=== PATIENT | female | born 1925 | race Caucasian/White ===

== ENCOUNTER 2016-04-04 10:32 | Inpatient (IN) | payer MEDICARE, OTHER ==
[2016-04-04] MEDS ORDERED: SODIUM CHLORIDE 0.9% 1,000 ML IV STA (10:59)
[2016-04-04] MEDS ORDERED: ACETAMINOPHEN SUPPOSITORY 650 MG SUPP RECTAL STA (11:08)
--- NOTE | 2016-04-04 11:08 | ED ---
Seizure HPI - General Chief Complaint: Seizure Stated Complaint: Seizure Time Seen by Provider: 04/04/16 10:47 Source: patient, family, EMS Mode of arrival: EMS Limitations: altered mental status - History of Present Illness Initial Comments: Patient presents to the [facility] with possible altered mental status versus seizure disorder. She does not answer questions. She has dementia. Information is provided by the daughters. They do not report anything else from the [facility]. - Related Data Home Medications Medication Instructions Recorded Confirmed Pravastatin Sodium [Pravachol] 20 mg PO DAILY@0800 04/11/14 04/04/16 Cholecalciferol [Vitamin D3] 1,000 unit PO DAILY@0800 08/29/15 04/04/16 Docusate [Colace] 100 mg PO DAILY 08/29/15 04/04/16 Acetaminophen Tab [Tylenol] 325 mg PO Q6H PRN 01/22/16 04/04/16 Atenolol [Atenolol] 50 mg PO BID@0800,2000 01/22/16 04/04/16 Escitalopram [Lexapro] 10 mg PO DAILY@0800 01/22/16 04/04/16 Polyethylene Glycol 3350 [Miralax] 17 gm PO DAILY PRN 01/22/16 04/04/16 Acetaminophen-Codeine 300-30mg 1 tab PO Q4H PRN 04/04/16 04/04/16 [Tylenol #3] Docusate [Colace] 100 mg PO DAILY PRN 04/04/16 04/04/16 Allergies Allergy/AdvReac Type Severity Reaction Status Date / Time enalapril Allergy Unknown Verified 04/04/16 11:02 Review of Systems ROS Statement: Those systems with pertinent positive or pertinent negative responses have been documented in the HPI. ROS Other: All systems not noted in ROS Statement are negative. Past Medical History Past Medical History: Atrial Fibrillation, Dementia, GERD/Reflux, GI Bleed, Hyperlipidemia, Hypertension, Memory Impairment, Skin Disorder Additional Past Medical History / Comment(s): wound right ankle-since healed( went to [facility] home), bunions kolby feet, clear colonoscopies ( daughter states 2 areas of bleed in colon). History of Any Multi-Drug Resistant Organisms: None Reported Past Surgical History: Appendectomy, Cholecystectomy Additional Past Surgical History / Comment(s): cataracts, vein stripping Past Anesthesia/Blood Transfusion Reactions: No Reported Reaction Past Psychological History: No Psychological Hx Reported Smoking Status: Never smoker Past Alcohol Use History: None Reported Past Drug Use History: None Reported - Past Family History Father Family Medical History: Liver Disease Brother(s) Family Medical History: Myocardial Infarction ([place]) Mother Family Medical History: No Reported History Additional Family Medical History / Comment(s): from old age at age of 92 General Exam Limitations: altered mental status General appearance: obtunded Head exam: Present: atraumatic Eye exam: Present: normal appearance Respiratory exam: Present: normal lung sounds bilaterally Cardiovascular Exam: Present: irregular rhythm GI/Abdominal exam: Present: soft. Absent: tenderness Extremities exam: Present: normal inspection. Absent: tenderness Back exam: Present: normal inspection Neurological exam: Present: other (Disoriented, not alert) Skin exam: Present: warm, dry Course Vital Signs 04/04/16 04/04/16 10:35 10:50 Temperature 97.5 F L Pulse Rate 106 H 95 Pulse Rate [ 102 H Apical] Respiratory 18 15 Rate Blood Pressure 145/85 128/89 O2 Sat by Pulse 93 L 93 L Oximetry Medical Decision Making - Medical Decision Making Laboratory workup reveals hypokalemia. Therefore I ordered the patient 20 mEq IV potassium chloride. Urinalysis is significant only positive for infection. Blood cultures have been sent. I ordered the patient IV ceftriaxone. Sodium is elevated, however chest x-ray shows pulmonary vascular congestion. Patient will be admitted to the hospital in serious condition. - Lab Data Result diagrams: 04/04/16 10:44 04/04/16 10:44 Lab Results 04/04/16 04/04/16 04/04/16 Range/Units 10:44 10:44 10:44 WBC 6.6 (3.8-10.6) k/uL RBC 3.37 L (3.80-5.40) m/uL Hgb 10.5 L (11.4-16.0) gm/dL Hct 33.9 L (34.0-46.0) % MCV 100.5 H (80.0-100.0) fL MCH 31.2 (25.0-35.0) pg MCHC 31.0 (31.0-37.0) g/dL RDW 15.0 (11.5-15.5) % Plt Count 326 (150-450) k/uL Neutrophils % 84 % Lymphocytes % 8 % Monocytes % 6 % Eosinophils % 0 % Basophils % 0 % Neutrophils # 5.6 (1.3-7.7) k/uL Lymphocytes # 0.5 L (1.0-4.8) k/uL Monocytes # 0.4 (0-1.0) k/uL Eosinophils # 0.0 (0-0.7) k/uL Basophils # 0.0 (0-0.2) k/uL Hypochromasia Moderate Macrocytosis Slight Sodium 153 H (137-145) mmol/L Potassium 2.9 L* (3.5-5.1) mmol/L Chloride 109 H (98-107) mmol/L Carbon Dioxide 34 H (22-30) mmol/L Anion Gap 10 mmol/L BUN 27 H (7-17) mg/dL Creatinine 0.86 (0.52-1.04) mg/dL Est GFR (MDRD) Af Amer >60 (>60 ml/min/1.73 sqM) Est GFR (MDRD) Non-Af >60 (>60 ml/min/1.73 sqM) Glucose 94 (74-99) mg/dL Calcium 9.0 (8.4-10.2) mg/dL Total Bilirubin 1.4 H (0.2-1.3) mg/dL AST 14 (14-36) U/L ALT 29 (9-52) U/L Alkaline Phosphatase 92 (38-126) U/L Total Protein 5.4 L (6.3-8.2) g/dL Albumin 2.5 L (3.5-5.0) g/dL Urine Color Yellow Urine Appearance Turbid H (Clear) Urine pH 6.5 (5.0-8.0) Ur Specific [place] 1.017 (1.001-1.035) Urine Protein 2+ H (Negative) Urine Glucose (UA) Negative (Negative) Urine Ketones Negative (Negative) Urine Blood Small H (Negative) Urine Nitrate Positive H (Negative) Urine Bilirubin Negative (Negative) Urine Urobilinogen 8.0 (<2.0) mg/dL Ur Leukocyte Esterase Large H (Negative) Urine RBC 13 H (0-5) /hpf Urine WBC >182 H (0-5) /hpf Urine WBC Clumps Many H (None) /hpf Urine Bacteria Few H (None) /hpf 04/04/16 11:08 Twelve-lead EKG is obtained, interpreted by me showing ventricular rate 112 bpm , no P waves present, significant for atrial fibrillation, no ST elevation or depression, QRS complex are normal. Interpreted by me as atrial fibrillation with accelerated ventricular response. Disposition Clinical Impression: Sepsis, UTI (urinary tract infection) Disposition: ADMITTED IP TO THIS HOSP Condition: Serious Time of Disposition: 11:53
[2016-04-04 11:16] LABS: Basophils % (A) 0 %; CH 31.2; CHCM 31.2; Eosinophils % (A) 0 %; HCT 33.9 % (34.0-46.0); HDW 2.91; HGB 10.5 gm/dL (11.4-16.0); Hypochromasia Moderate; Luc # (Auto) 0.11; Luc % (Auto) 2; Lymphocytes # (A) 0.5 k/uL (1.0-4.8); Lymphocytes % (A) 8 %; MCH 31.2 pg (25.0-35.0); MCV 100.5 fL (80.0-100.0); Macrocytosis Slight; Mean Platelet Volume 7.1; Monocytes # (A) 0.4 k/uL (0-1.0); Monocytes % (A) 6 %; Neutrophils # (A) 5.6 k/uL (1.3-7.7); Neutrophils % (A) 84 %; RBC 3.37 m/uL (3.80-5.40); WBC 6.6 k/uL (3.8-10.6); WBC (Perox) 6.86
[2016-04-04 11:31] LABS: ALT 29 U/L (9-52); AST 14 U/L (14-36); Alkaline Phosphatase 92 U/L (38-126); Anion Gap 10 mmol/L; Blood Urea Nitrogen 27 mg/dL (7-17); Carbon Dioxide 34 mmol/L (22-30); Chloride 109 mmol/L (98-107); Glucose 94 mg/dL (74-99); Non-African American GFR(MDRD) >60 (>60 ml/min/1.73 sqM); Sodium 153 mmol/L (137-145); Total Bilirubin 1.4 mg/dL (0.2-1.3); Total Protein 5.4 g/dL (6.3-8.2)
[2016-04-04 11:35] LABS: Potassium 2.9 mmol/L (3.5-5.1)
[2016-04-04 11:40] LABS: Appearance,Urine Turbid (Clear); Bacteria,Urine Few /hpf; Bilirubin,Urine Negative (Negative); Glucose,Urine (UA) Negative (Negative); Ketones,Urine Negative (Negative); Leukocyte Esterase,Urine Large (Negative); Nitrite,Urine Positive (Negative); PH, Urine 6.5 (5.0-8.0); Particle Count 50991; Protein,Urine 2+ (Negative); RBC,Urine 13 /hpf (0-5); Specific Gravity,Urine 1.017 (1.001-1.035); UA Billing (MACRO vs. MICRO) MICRO; WBC,Urine >182 /hpf (0-5)
[2016-04-04] MEDS ORDERED: cefTRIAXone 2,000 MG in SODIUM CHLORIDE 0.9% 100 ML IVPB STA (11:43)
--- NOTE | 2016-04-04 11:44 | XR ---
EXAMINATION TYPE: XR chest 2V DATE OF EXAM: 04/04/2016 11:38 AM COMPARISON: Chest x-ray January 22, 2016 HISTORY: Chest pain and shortness of breath TECHNIQUE: Frontal and lateral views of the chest are obtained. FINDINGS: There is redemonstration of cardiomegaly with worsening central vascular congestion and in creasing bibasilar opacity felt to reflect worsening small to moderate-sized bilateral pleural effusi ons. There is associated bibasilar atelectasis and/or infiltrate. The osseous structures are deminer alized. IMPRESSION: Suspect CHF exacerbation as there is cardiomegaly with worsening moderate central vascul ar congestion and worsening small to moderate-sized right greater than left pleural effusions.
[2016-04-04] MEDS ORDERED: POTASSIUM CHLORIDE 20 MEQ in WATER FOR INJECTION 1 100ML.BAG IVPB STA (11:51)
--- NOTE | 2016-04-04 11:51 | CT ---
EXAMINATION TYPE: CT brain wo con DATE OF EXAM: 04/04/2016 11:34 AM COMPARISON: 08/29/2015 HISTORY: Patient having possible seizures, eyes rolled back CT DLP: 1171 mGycm, Automated exposure control for dose reduction was used. CONTRAST: CT scan of the head is performed , patient injected with mL of . CT of the brain is performed utilizing 3 mm thick sections through the posterior fossa and 3 mm thick sections through the remaining calvarium. Study is performed within 24 hours of arrival to the hosp [facility]. No abnormal hyperdensity is present to suggest an acute intracranial hemorrhage. No mass lesion is evident. No acute infarcts are evident. Periventricular white matter hypodensity is present. This is confluent can be compatible with chronic white matter ischemic changes. Findings were present previously and a ppear stable. Ventricles and sulci are prominent for the patient age. Paranasal sinuses and mastoid air cells within the [id number] are clear. IMPRESSIONS: 1. Atrophy with chronic appearing white matter ischemic changes.
[2016-04-04] MEDS ORDERED: TEMAZEPAM 15 MG CAP PO PRN (11:53)
[2016-04-04] MEDS ORDERED: ONDANSETRON 4 MG/2 ML VIAL IVP PRN (11:53)
[2016-04-04] MEDS ORDERED: NALOXONE 0.4 MG/ML 1 ML VIAL IV PRN (11:53)
[2016-04-04] MEDS ORDERED: DOCUSATE 100 MG CAP PO PRN (11:55)
[2016-04-04] MEDS ORDERED: POLYETHYLENE GLYCOL 3350 17 GM POWD.PACK PO PRN (11:55)
[2016-04-04] MEDS: ATENOLOL 50 MG TAB PO SCH (20:43)
[2016-04-04] MEDS: SODIUM CHLORIDE 0.45% 1,000 ML IV SCH (20:50)
[2016-04-04] MEDS ORDERED: Potassium Replacement Protocol 1 EACH MISC MISCELLANE PRN ×2 (21:28→21:35)
--- NOTE | 2016-04-04 21:40 | HP ---
DATE OF ADMISSION: 04/04/2016 CHIEF COMPLAINT: Altered mental status. HISTORY OF PRESENT ILLNESS: Ms. Simmons is an 89-year-old female with a known history of hypertension, atrial fibrillation, not on anticoagulation due to previous GI bleed, and varicose veins who lives at an [facility] home, was feeling very weak and she complained of abdominal pain when she was being moved from the bed. Patient also had some shaky movements at that time and she lost consciousness. Patient was brought to the hospital for further evaluation. Patient was found to have sepsis secondary to urinary tract infection and also dehydration. Patient had a CT of the brain that showed atrophy with chronic-appearing white matter ischemic changes. Patient had a chest x-ray that showed suspected CHF exacerbation as there is cardiomegaly with worsening moderate central vascular congestion and worsening small to moderate-sized right and left pleural effusion. Patient was admitted to the hospital for further elevation. Currently patient denies any complaints of fever or chills. Patient does have a history of atrial fibrillation. Her EKG showed atrial fibrillation with rapid ventricular rate on admission. Patient does take atenolol 50 mg p.o. b.i.d. REVIEW OF SYSTEMS: CARDIOVASCULAR: No chest pain. Denied any shortness of breath. No leg swelling. GASTROINTESTINAL: No nausea, vomiting. Patient had lower abdominal pain. GENITOURINARY: No dysuria. No hematuria. ENDOCRINE: Negative. PSYCHIATRY: Negative. SKIN: Negative. All other fourteen-point review of systems negative except as above. PAST MEDICAL HISTORY: 1. Chronic atrial fibrillation, not on anticoagulation due to GI bleed. 2. Dementia. 3. GERD. 4. GI bleed. 5. Hyperlipidemia. 6. Hypertension. 7. Memory impairment. 8. History of varicose veins, status post vein stripping. PAST SURGICAL HISTORY: 1. Appendectomy. 2. Cholecystectomy. 3. Cataract surgery. 4. Vein stripping surgery. SOCIAL HISTORY: Patient was never a smoker. Denied any alcohol. Denied any drugs or IVDU. FAMILY HISTORY: Father had liver disease. Brother had DE. Mother from old age at 92. ALLERGIES INCLUDE ENALAPRIL. HOME MEDICATIONS: 1. Pravastatin. 2. Vitamin D3. 3. Docusate. 4. Tylenol. 5. Atenolol. 6. Lexapro. 7. Polyethylene glycol. 8. Tylenol No. 3. 9. Colace. PHYSICAL EXAMINATION: An 89-year-old female lying in the bed. Awake, alert, oriented x3. No apparent distress at this time. Patient was confused when she came to the hospital. VITALS: Blood pressure is 128/89. Pulse is 95, respiration 15, temperature afebrile, pulse ox 93% on room air. HEENT: Atraumatic, normocephalic. Neck is supple. No JVD. CVS EXAM: S1, S2 heard. No murmurs. No gallop. LUNGS: Bilateral air entry is present. Decreased breath sounds bilaterally. Minimal crackles positive, especially on the right side. No wheezing. Non-labored breathing. ABDOMEN: Soft, nontender. Bowel sounds are present. CHIEF OF PLANNING: Awake, alert, oriented x3. No focal neurologic deficit. Cranial nerves grossly intact. EXTREMITIES: No edema. Pulses palpable bilaterally. No clubbing or cyanosis. PSYCHIATRIC: Cooperative. LABORATORY DATA: WBC 6.6, hemoglobin 10.5, MCV 100.5, platelets 326. Sodium 143, potassium 2.9, chloride 109, bicarb 34. BUN 27, creatinine 0.86. Total bilirubin is 1.4. Albumin 2.5. UA showed large leukocyte esterase and nitrate positive and greater than 182 WBCs. EKG showed atrial fibrillation with rapid ventricular rate. Chest x-ray showed central vascular congestion and worsening small to moderate right greater than left pleural effusion. IMPRESSION: 1. Sepsis secondary to acute urinary tract infection. 2. Acute metabolic encephalopathy secondary to infection. 3. Chronic atrial fibrillation with rapid ventricular rate; restarted back on atenolol. Not on anticoagulation due to history of GI bleed. 4. Acute congestive heart failure on chest x-ray finding. Ejection fraction unknown at this time. Will check 2-D echocardiogram. 5. Hyponatremia due to free water deficit. Continue with gentle hydration. 6. Hypertension. Blood pressure is controlled. 7. History of varicose veins. 8. Depression. 9. Macrocytosis. 10. Normocytic anemia. 11. Severe hypokalemia. 12. Elevated BUN with dehydration and metabolic alkalosis, most likely contraction alkalosis. 13. Mild to moderate protein-calorie malnutrition with albumin level of 2.5. DISCUSSION AND PLAN: Feusiq[age][id number]-raru-old female admitted to the hospital with acute urinary tract infection with CHF. Will continue with the antibiotics. Will check NT-proBNP and order a 2-D echocardiogram. Continue with the gentle dehydration due to volume depletion. Continue to replace potassium. Follow up closely. Prognosis is guarded. I did discuss with the family in detail. Further recommendations based on the clinical course. Will repeat a chest x-ray in the morning.
[2016-04-04] MEDS: POTASSIUM CHLORIDE 10 MEQ, LIDOCAINE 2% INJ 10 MG in SODIUM CHLORIDE 0.9% 100 ML IV SCH ×2 (21:58→23:10)
[2016-04-05] MEDS: POTASSIUM CHLORIDE 10 MEQ, LIDOCAINE 2% INJ 10 MG in SODIUM CHLORIDE 0.9% 100 ML IVPB SCH ×2 (02:26→03:33)
--- NOTE | 2016-04-05 07:27 | XR ---
EXAMINATION TYPE: XR chest 1V portable DATE OF EXAM: 04/05/2016 6:57 AM COMPARISON: NONE INDICATION: CHF TECHNIQUE: Single frontal view of the chest is obtained. FINDINGS: Enlarged Prominent Right lower lobe infiltrate is present. Some right pleural effusion may be present. Mild left lower l obe infiltrate is present. IMPRESSION: 1. Findings can be compatible with congestive heart failure. Developing right lower lobe pneumonia is not excluded. Continued follow-up is recommended
[2016-04-05 07:56] LABS: Basophils % (A) 1 %; CH 31.6; CHCM 30.9; Eosinophils # (A) 0.1 k/uL (0-0.7); Eosinophils % (A) 2 %; HCT 33.7 % (34.0-46.0); HDW 2.91; Hypochromasia Moderate; Luc # (Auto) 0.08; Luc % (Auto) 1; Lymphocytes # (A) 0.5 k/uL (1.0-4.8); Lymphocytes % (A) 8 %; MCH 30.6 pg (25.0-35.0); MCHC 29.7 g/dL (31.0-37.0); MCV 102.9 fL (80.0-100.0); Macrocytosis Slight; Monocytes # (A) 0.2 k/uL (0-1.0); Monocytes % (A) 4 %; Neutrophils % (A) 84 %; RBC 3.27 m/uL (3.80-5.40); RDW 15.1 % (11.5-15.5); WBC 5.9 k/uL (3.8-10.6); WBC (Perox) 5.81
[2016-04-05 08:14] LABS: Anion Gap 8 mmol/L; Blood Urea Nitrogen 27 mg/dL (7-17); Calcium 8.7 mg/dL (8.4-10.2); Carbon Dioxide 29 mmol/L (22-30); Chloride 113 mmol/L (98-107); Glucose 105 mg/dL (74-99); Non-African American GFR(MDRD) 60 (>60 ml/min/1.73 sqM); Potassium 3.7 mmol/L (3.5-5.1); Sodium 150 mmol/L (137-145)
[2016-04-05] MEDS ORDERED: DOCUSATE 100 MG CAP PO SCH (09:00)
[2016-04-05] MEDS ORDERED: PANTOPRAZOLE 40 MG/10 ML VIAL IV SCH (09:00)
[2016-04-05] MEDS: ESCITALOPRAM 10 MG TAB PO SCH (09:03)
[2016-04-05] MEDS: ATENOLOL 50 MG TAB PO SCH ×2 (09:03→21:38)
[2016-04-05] MEDS: CHOLECALCIFEROL 1,000 UNIT TAB PO SCH (09:03)
[2016-04-05] MEDS: PRAVASTATIN SODIUM 20 MG TAB PO SCH (09:03)
[2016-04-05] MEDS ORDERED: Potassium Replacement Protocol 1 EACH MISC MISCELLANE PRN (09:50)
--- NOTE | 2016-04-05 10:16 | ECHOF ---
Referral Reason:CHF MEASUREMENTS -------- HEIGHT: 154.9 cm WEIGHT: 55.8 kg BP: 101/58 RVIDd: 3.6 cm (< 3.3) IVSd: 1.3 cm (0.6 - 1.1) LVIDd: 3.5 cm (3.9 - 5.3) LVPWd: 1.3 cm (0.6 - 1.1) IVSs: 1.5 cm LVIDs: 2.9 cm LVPWs: 1.6 cm LA Diam: 4.2 cm (2.7 - 3.8) LAESV Index (A-L): 62.27 ml/m Ao Diam: 2.6 cm (2.0 - 3.7) AV Cusp: 1.3 cm (1.5 - 2.6) LA Diam: 3.5 cm (2.7 - 3.8) MV EXCURSION: 13.883 mm (> 18.000) MV EF SLOPE: 75 mm/s (70 - 150) EPSS: 0.8 cm RAP: 5.00 mmHg RVSP: 58.20 mmHg FINDINGS -------- Atrial fibrillation. This was a technically good study. There is mild concentric left ventricular hypertrophy. There is severe global hypokinesis of LV . Overall left ventricular systolic function is severely impaired with, an EF between 20 - 25 %. The right ventricle is mild to moderately enlarged. LA is severely dilated >40 ml/m2 RA appears enlarged. Aortic valve is trileaflet and is moderately thickened. The mitral valve leaflets are mildly thickened. Moderate mitral annular calcification present. Mild mitral regurgitation is present. Moderate tricuspid regurgitation present. There is severe pulmonary hypertension. The right ventricular systolic pressure, as measured by Doppler, is 58.20mmHg. Pulmonic valve appears structurally normal. The aortic root size is normal. Normal inferior vena cava with normal inspiratory collapse consistent with estimated right atrial pressure of 5 mmHg. There is a trivial pericardial effusion present. CONCLUSIONS -------- 1. Atrial fibrillation. 2. Moderate mitral annular calcification present. 3. Mild mitral regurgitation is present. 4. Moderate tricuspid regurgitation present. 5. There is severe pulmonary hypertension. 6. The right ventricular systolic pressure, as measured by Doppler, is 58.20mmHg. 7. Pulmonic valve appears structurally normal. 8. The aortic root size is normal. 9. There is a trivial pericardial effusion present. 10. This was a technically good study. 11. There is mild concentric left ventricular hypertrophy. 12. There is severe global hypokinesis of LV . 13. Overall left ventricular systolic function is severely impaired with, an EF between 20 - 25 %. 14. The right ventricle is mild to moderately enlarged. 15. LA is severely dilated >40 ml/m2 16. RA appears enlarged. 17. The mitral valve leaflets are mildly thickened. WATERPROOF BAG SEWER: Radha Kenney RDCS
[2016-04-05] MEDS: POTASSIUM CHLORIDE 10 MEQ, LIDOCAINE 2% INJ 10 MG in SODIUM CHLORIDE 0.9% 100 ML IV SCH ×2 (10:30→12:24)
[2016-04-05] MEDS ORDERED: FUROSEMIDE 10 MG/ML 2 ML VIAL IV ONE (11:01)
--- NOTE | 2016-04-05 11:55 | CONS ---
DATE OF CONSULTATION: CHIEF COMPLAINT: Not feeling well. HISTORY OF PRESENT ILLNESS: This is an 89-year-old lady with history of dementia, seizure disorder, who lives in adult foster retirement with history of chronic atrial fibrillation with history of congestive heart failure who presented to hospital because she had a seizures at the [facility]. She has had prior episodes of urinary tract infection and also had atrial fibrillation. I am not able to obtain the information from the patient and spoke to her daughters who are at bedside. She however seems very comfortable at rest. Denies angina and does not seem to be in respiratory distress. EKG shows atrial fibrillation with nonspecific ST-T wave changes. BNP is elevated and chest x-ray shows pulmonary congestion all consistent with a diagnosis of acute exacerbation of congestive heart failure and echocardiogram shows severe LV systolic dysfunction suggestive of acute exacerbation of chronic systolic heart failure. I reviewed her echo results. I reviewed her EKG and I reviewed her lab tests. Past medical history is significant for chronic atrial fibrillation, hypertension, dementia, seizures. Medications are as charted. ALLERGIES: As charted. FAMILY HISTORY: Negative for premature coronary artery disease. SOCIAL HISTORY: Negative for smoking, ETOH use or drug abuse. REVIEW OF SYSTEMS: HEENT: Unremarkable. CARDIAC: As described above. RESPIRATORY: As described above. GI: Significant for history of bleeding. GENITOURINARY: Significant for urinary tract infection. PSYCHOSOCIAL: Negative. ENDOCRINE: Negative. Dermatology: Negative. CONSTITUTIONAL: Negative. The rest of the system review not relevant. On exam, patient is comfortable at rest. Heart rate is in the 90s, blood pressure is 130/70, respiratory rate is 18. There is no jugular venous distention. Carotid upstroke is normal. There is no bruit. Chest exam reveals good air entry bilaterally. Heart exam reveals first and second heart sounds, irregular rhythm. ABDOMEN: Soft. Exam of the extremities did not reveal any edema. Peripheral pulses are felt. CAN HANDLER exam did not reveal focal neurological deficits. Labs have been reviewed. EKG has been reviewed. Chest x-ray has been reviewed. ASSESSMENT: 1. Acute exacerbation of chronic systolic heart failure. 2. Chronic atrial fibrillation with history of gastrointestinal bleed. 3. Dementia. 4. Seizure disorder. PLAN: The patient was already on beta blockers, which I am going to continue. She is not a candidate for anticoagulation. I will start MELY inhibitors in the form of Lisinopril 5 mg daily and diuretics in the form of Lasix 40 b.i.d.
[2016-04-05] MEDS: DEXTROSE 5% IN WATER 1,000 ML IV SCH (12:24)
[2016-04-05] MEDS: SODIUM CHLORIDE 0.45% 1,000 ML IV SCH (12:26)
--- NOTE | 2016-04-05 14:50 | XR ---
EXAMINATION TYPE: XR abdomen 1V DATE OF EXAM: 04/05/2016 2:43 PM COMPARISON: NONE INDICATION: Constipation TECHNIQUE: Single view abdomen supine view FINDINGS: There is a normal bowel gas pattern. Psoas margins are normal. No organomegaly is present. Advanced degenerative joint changes and acetabular protrusio is present on the right some degenerativ e changes are within the lower lumbar spine IMPRESSION: 1. No acute abdomen process. 2. Advanced degenerative changes right hip
[2016-04-05] MEDS: ISOSORBIDE MONONITRATE ER 30 MG TAB.ER.24H PO SCH (15:42)
[2016-04-05] MEDS: hydrALAZINE HCL 25 MG TAB PO SCH ×2 (15:43→21:38)
[2016-04-05] MEDS: FUROSEMIDE 40 MG TAB PO SCH (15:44)
[2016-04-05] MEDS: POTASSIUM CHLORIDE ER 20 MEQ TAB.ER PO SCH (21:38)
[2016-04-06 07:43] LABS: Basophils % (A) 0 %; CHCM 31.2; Eosinophils # (A) 0.1 k/uL (0-0.7); Eosinophils % (A) 2 %; HCT 29.4 % (34.0-46.0); HDW 2.84; HGB 9.3 gm/dL (11.4-16.0); Hypochromasia Slight; Luc # (Auto) 0.12; Luc % (Auto) 2; Lymphocytes # (A) 0.6 k/uL (1.0-4.8); Lymphocytes % (A) 10 %; MCH 31.7 pg (25.0-35.0); MCHC 31.8 g/dL (31.0-37.0); MCV 99.9 fL (80.0-100.0); Macrocytosis Slight; Monocytes # (A) 0.2 k/uL (0-1.0); Monocytes % (A) 4 %; Neutrophils # (A) 4.7 k/uL (1.3-7.7); Neutrophils % (A) 82 %; RBC 2.94 m/uL (3.80-5.40); RDW 14.8 % (11.5-15.5); WBC 5.8 k/uL (3.8-10.6)
[2016-04-06] MEDS: ATENOLOL 50 MG TAB PO SCH ×2 (08:03→21:37)
[2016-04-06 08:04] LABS: Anion Gap 8 mmol/L; Blood Urea Nitrogen 23 mg/dL (7-17); Calcium 8.2 mg/dL (8.4-10.2); Carbon Dioxide 29 mmol/L (22-30); Chloride 104 mmol/L (98-107); Glucose 110 mg/dL (74-99); Non-African American GFR(MDRD) >60 (>60 ml/min/1.73 sqM); Potassium 3.5 mmol/L (3.5-5.1); Sodium 141 mmol/L (137-145)
[2016-04-06] MEDS: ISOSORBIDE MONONITRATE ER 30 MG TAB.ER.24H PO SCH (08:04)
[2016-04-06] MEDS: PRAVASTATIN SODIUM 20 MG TAB PO SCH (08:04)
[2016-04-06] MEDS: ESCITALOPRAM 10 MG TAB PO SCH (08:04)
[2016-04-06] MEDS: POTASSIUM CHLORIDE ER 20 MEQ TAB.ER PO SCH ×2 (08:04→21:37)
[2016-04-06] MEDS: FUROSEMIDE 40 MG TAB PO SCH ×2 (08:04→15:07)
[2016-04-06] MEDS: CHOLECALCIFEROL 1,000 UNIT TAB PO SCH (08:04)
[2016-04-06] MEDS: PANTOPRAZOLE 40 MG TABLET PO SCH (08:04)
[2016-04-06] MEDS: hydrALAZINE HCL 25 MG TAB PO SCH ×3 (08:04→21:37)
[2016-04-06] MEDS: DEXTROSE 5% IN WATER 1,000 ML IV SCH (12:22)
--- NOTE | 2016-04-06 13:40 | PN ---
DATE OF SERVICE: 04/05/2016 HISTORY OF PRESENT ILLNESS: Ms Simmons is an 89-year-old female with known history of hypertension, atrial fibrillation, not on anticoagulation due to a previous GI bleed and varicose veins with history of stripping. Was sent from [facility] home, patient complaining of abdominal pain and not feeling very well. Patient was found to have a urinary tract infection and chest x-ray showed congestion and possible CHF. 2D echo showed ejection fraction 22%. Cardiology has been consulted. Patient will be diuresed with IV Lasix at this time. Patient is already on beta blockers. Otherwise, patient is more awake and oriented today. Still complaining of abdominal pain. Abdominal x-ray did not reveal any findings. Patient did have constipation. The patient will be continued on stool softeners and laxatives. Otherwise, the patient denied any complaints of chest pain. No short of breath. Complete answers could not be obtained from the patient. CURRENT MEDICATIONS: Reviewed. PHYSICAL EXAMINATION: 89-year-old female lying in bed awake, alert and oriented x3. Patient in no apparent distress. VITALS: Blood pressure is 148/92, pulse is 108, respirations 16, temperature afebrile, pulse ox 93% on room air. HEENT: Atraumatic, normocephalic. Neck is supple. No JVD. CVS: S1, S2 heard, irregularly irregular pulse. Trace edema. LUNGS: Bilateral air entry is present. Minimal crackles at the bases. Nonlabored breathing. ABDOMEN: Soft, mild tenderness in the lower abdomen. No guarding or rigidity. Bowel sounds are present. SUPERVISOR PRESSING DEPARTMENT: Awake, alert, oriented, x3. Alert, awake, oriented x2 to 3. Able to move all her extremities. EXTREMITIES: Trace edema. Pulses ( ). No clubbing or cyanosis. PSYCHIATRIC: Cooperative. Nonsuicidal. SKIN: No rash or skin lesions. LABORATORY DATA: WBC 5.9, hemoglobin 10.0, platelets are 301 Sodium 150, potassium 3.0. Chloride 113, bicarb is 29, BUN 27, creatinine 0.89. Blood cultures show no growth. Urine culture was ordered. Abdominal x-ray showed normal bowel gas pattern. IMPRESSION: 1. Sepsis secondary to acute urinary tract infection. 2. Acute metabolic encephalopathy secondary to infection. 3. Acute CHF with systolic dysfunction, ejection fraction 22% . 4. Chronic atrial fibrillation with rapid ventricular rate on admission, improved now, not on anticoagulation due to GI bleed. 5. Hypernatremia due to free water deficit. Continue ( ) hydration. 6. Hypertension. 7. History of varicose veins status post stripping. 8. Depression. 9. Macrocytic anemia. 10. Severe hypokalemia on admission. 11. Elevated BUN and metabolic alkylosis secondary to dehydration and ( ) alkalosis on admission. 12. Mild to moderate protein calorie malnutrition with albumin level of 2.5. This is an 89-year-old female admitted to the hospital with sepsis secondary to UTI and acute ( ).. The patient was started on Lasix 40 mg b.i.d. and continue with beta blockers and lisinopril has been added. I will continue the current management. Not a candidate for anticoagulation due to GI bleed. Cardiology has seen the patient. Appreciate recommendations. Further recommendations based on clinical course.
--- NOTE | 2016-04-06 18:47 | PN ---
Mrs. Simmons is an 89-year-old female who has a history of atrial fibrillation, who presented to the hospital with symptoms of congestive heart failure. She is feeling better this morning. Her breathing is better. She denies any chest pain. She denies any dizziness. No palpitation. She had an echocardiogram that revealed a severely impaired left ventricular systolic function disease with moderate tricuspid regurgitation and severe pulmonary hypertension. She was started on atenolol 50 mg twice a day, Lasix 40 mg twice a day, Apresoline 25 mg 3 times a day, isosorbide mononitrate 30 mg daily and she is on pravastatin 40 mg daily. PHYSICAL EXAMINATION: Blood pressure 139/80 with a heart in the 80s. LUNGS: With mild decreased in breath sounds. HEART: Irregularly irregular. S1, S2, no S3, no rub with a systolic murmur. ABDOMEN: Soft, nontender. EXTREMITIES: No edema. Lab data revealed BUN and creatinine 23 and 0.8. Potassium 3.5, Hemoglobin of 9.3. IMPRESSION: 1. Symptoms of congestive heart failure, improving. 2. Cardiomyopathy. 3. Chronic atrial fibrillation. Not anticoagulated. The patient felt to be a high risk for bleeding. RECOMMENDATIONS: From the cardiac standpoint, I will continue present therapy. Follow her renal function. I will replace her potassium. Depending on her progress, further recommendation will be made.
[2016-04-07] MEDS: ATENOLOL 50 MG TAB PO SCH ×2 (08:14→20:20)
[2016-04-07] MEDS: FUROSEMIDE 40 MG TAB PO SCH ×2 (08:14→18:40)
[2016-04-07] MEDS: hydrALAZINE HCL 25 MG TAB PO SCH ×2 (08:14→18:40)
[2016-04-07] MEDS: CHOLECALCIFEROL 1,000 UNIT TAB PO SCH (08:14)
[2016-04-07] MEDS: PRAVASTATIN SODIUM 20 MG TAB PO SCH (08:15)
[2016-04-07] MEDS: PANTOPRAZOLE 40 MG TABLET PO SCH (08:15)
[2016-04-07] MEDS: ISOSORBIDE MONONITRATE ER 30 MG TAB.ER.24H PO SCH (08:15)
[2016-04-07] MEDS: POTASSIUM CHLORIDE ER 20 MEQ TAB.ER PO SCH ×2 (08:15→20:20)
[2016-04-07] MEDS: ESCITALOPRAM 10 MG TAB PO SCH (08:15)
[2016-04-07 08:33] LABS: Anion Gap 7 mmol/L; Blood Urea Nitrogen 19 mg/dL (7-17); Calcium 8.5 mg/dL (8.4-10.2); Carbon Dioxide 30 mmol/L (22-30); Chloride 102 mmol/L (98-107); Glucose 82 mg/dL (74-99); Non-African American GFR(MDRD) >60 (>60 ml/min/1.73 sqM); Potassium 3.9 mmol/L (3.5-5.1); Sodium 139 mmol/L (137-145)
--- NOTE | 2016-04-08 07:47 | PN ---
Mrs. Simmons is an 89-year-old female with history of atrial fibrillation, who presented with congestive heart failure, was found to have severe cardiomyopathy. She is feeling better today. She is lying supine without any dyspnea. Denying any chest pain. No dizziness, palpitation. She denies any nausea. She continues to be at this time on atenolol 50 mg twice a day, furosemide 40 mg twice a day, isosorbide mononitrate 30 mg daily, potassium 20 mEq twice a day and the hydralazine 25 mg 3 times a day. PHYSICAL EXAMINATION: Blood pressure 104/60 with a heart rate in the 90s. LUNGS: Clear. HEART: Irregularly irregular. S1, S2, no S3, no rub. ABDOMEN: Soft, nontender. EXTREMITIES: No edema. Lab data revealed BUN and creatinine 19 and 0.7. Potassium 3.9. IMPRESSION: 1. Congestive heart failure with severe cardiomyopathy, stable. 2. Atrial fibrillation. Not anticoagulated because of the increased risk of bleeding. 3. Urinary tract infection. RECOMMENDATIONS: I will continue on the present regimen at this time. In view of the severe impairment in the left ventricular systolic function and the fact that her renal function are stable, I will add angiotensin receptor fermín and stop the hydralazine, continue the rest of her medical regimen. Follow her renal function and depending on her progress, further recommendation will be made.
[2016-04-08] MEDS: ATENOLOL 50 MG TAB PO SCH ×2 (07:50→22:18)
[2016-04-08] MEDS: ISOSORBIDE MONONITRATE ER 30 MG TAB.ER.24H PO SCH (07:51)
[2016-04-08] MEDS: PANTOPRAZOLE 40 MG TABLET PO SCH (07:51)
[2016-04-08] MEDS: LOSARTAN 25 MG TAB PO SCH (07:51)
[2016-04-08] MEDS: CHOLECALCIFEROL 1,000 UNIT TAB PO SCH (07:51)
[2016-04-08] MEDS: ESCITALOPRAM 10 MG TAB PO SCH (07:51)
[2016-04-08] MEDS: PRAVASTATIN SODIUM 20 MG TAB PO SCH (07:51)
[2016-04-08] MEDS: FUROSEMIDE 40 MG TAB PO SCH (07:51)
[2016-04-08] MEDS: POTASSIUM CHLORIDE ER 20 MEQ TAB.ER PO SCH ×2 (07:52→22:18)
[2016-04-08 08:30] LABS: Anion Gap 9 mmol/L; Blood Urea Nitrogen 17 mg/dL (7-17); Calcium 8.6 mg/dL (8.4-10.2); Carbon Dioxide 28 mmol/L (22-30); Chloride 98 mmol/L (98-107); Glucose 87 mg/dL (74-99); Non-African American GFR(MDRD) >60 (>60 ml/min/1.73 sqM); Sodium 135 mmol/L (137-145)
--- NOTE | 2016-04-08 16:16 | PN ---
DATE OF SERVICE: 04/07/2016 INTERVAL HISTORY: Ms. Simmons is an 89-year-old female who was admitted to the hospital with sepsis secondary to urinary tract infection and acute CHF with systolic dysfunction and ejection fraction of 30%. Currently the patient is symptomatically much improved now. Denied any short of breath or chest pain today. Hyponatremia has resolved. Otherwise, the patient was able to eat breakfast today. Denies any chest pain. No worsening shortness of breath. No acute ( ). No fever. No chills. Is to be discharged to [facility] possibly tomorrow. REVIEW OF SYSTEMS: CONSTITUTIONAL: No fever. No chills. RESPIRATORY: No cough or sputum production. CARDIOVASCULAR: No chest pain or shortness of breath. ABDOMEN: No nausea, vomiting. SKIN: Negative. PSYCHIATRIC: Negative. SKIN: Negative. All other 14 point systems reviewed and negative except as above. CURRENT MEDICATIONS: Reviewed. PHYSICAL EXAMINATION: 89-year-old female lying in bed comfortably, awake, alert, oriented, x3. She is in no apparent distress. VITALS: Blood pressure is 136/74, pulse is 101, respirations 18, temperature afebrile, pulse ox 95% on room air. HEENT: Atraumatic, normocephalic. Neck is supple. No JVD. CVS: S1, S2 heard. No murmurs, no gallop, no rub. LUNGS: Bilateral air entry is present. No wheezing. No crackles. Nonlabored breathing. ABDOMEN: Soft, nontender, bowel sounds present. FRUIT PITTER: Alert, awake and oriented x3. No focal neurologic deficits. Cranial nerves grossly intact. EXTREMITIES: No edema. Pulses palpable bilaterally. No clubbing or cyanosis. PSYCHIATRIC: Cooperative. LABORATORY DATA: Sodium 139, potassium 3.9, chloride 102, bicarb is 30. BUN 19, creatinine 0.7. Calcium 8.2. IMPRESSION: 1. Sepsis secondary to urinary tract infection. Urine culture showed skin shady and on antibiotics in the form of ceftriaxone. 2. Acute metabolic encephalopathy secondary to infection, improved. 3. Acute CHF with systolic dysfunction, ejection fraction 30%. 4. Chronic atrial fibrillation with rapid ventricular rate on admission, improved now. Not on anticoagulation due to GI bleed. 5. Hypernatremia due to free water deficit, resolved now, tolerating p.o. diet. 6. Hypertension. 7. History of varicose veins status post stripping. 8. Depression. 9. Macrocytic anemia. 10. Severe hypokalemia on admission. 11. Elevated BUN. 12. Metabolic alkylosis secondary to dehydration and volume depletion. 13. Mild to moderate protein calorie malnutrition with albumin level of 2.5. DISCUSSION AND PLAN: 14-alasf-eyh female, continue the current management including Lasix, beta blockers and lisinopril and antibiotics and follow up closely. Anticipate discharge in the next 24 hours. The patient is doing well through clinical course.
--- NOTE | 2016-04-08 17:26 | PN ---
DATE OF SERVICE: 04/06/2016 INTERVAL HISTORY: Ms. Simmons is an 89 -year-old female with known history of multiple medical problems, was admitted from the care home with complaints of abdominal pain and not feeling well. The patient was found to have urinary tract infection and chest x-ray showed congestive heart failure. 2D echo showed ejection fraction of 20%. Currently was started on p.o. Lasix and Lisinopril. Beta blockers, the patient is already taking. Patient does have history of atrial fibrillation, for which patient is on beta blockers and not a candidate for anticoagulation. Otherwise, patient had constipation which has resolved now. Patient symptomatically improved with breathing treatments. Otherwise, the patient is not tolerating p.o. diet very well and is eating very small ( ). I did discuss with the family at bedside. Symptomatically improved today. REVIEW OF SYSTEMS: CONSTITUTIONAL: No fever. No chills. RESPIRATORY: No cough or sputum production. CARDIOVASCULAR: No chest pain or shortness of breath. ABDOMEN: No nausea, vomiting or abdominal pain. GENITOURINARY: Negative. ENDOCRINE: Negative. PSYCHIATRY: Negative. SKIN: Negative. All other fourteen-point review of except as above. CURRENT MEDICATIONS: Reviewed. PHYSICAL EXAMINATION: An 89-year-old female, lying in the bed. Awake, alert, oriented, x3, appears to be in no apparent distress. VITALS: Blood pressure is 117/73, pulse 102, respirations 20, temperature afebrile, pulse ox 94% on room air. HEENT: Atraumatic, normocephalic. Neck is supple. No JVD. CVS: S1, S2 heard. No murmurs, no gallop. LUNGS: Bilateral air entry is present. No wheezing. No crackles. Nonlabored breathing. ABDOMEN: Soft, lower abdominal tenderness. Nontenderness. Bowel sounds are present. COILED TUBING SUPERVISOR: Awake, alert, oriented, x3. The patient is lethargic, able to move all her extremities. EXTREMITIES: No edema. Pulses palpable bilaterally. No clubbing or cyanosis. PSYCHIATRIC: Cooperative. LABORATORY DATA: WBC 5.8, hemoglobin 9.3, platelets 280, sodium 141, potassium 3.5, chloride 104, bicarb is 29, BUN 23, creatinine 0.8. Calcium 8.2. IMPRESSION: 1. Sepsis secondary to acute urinary tract infection. Urine culture showed skin shady, continue antibiotics in the form of ceftriaxone. 2. Acute metabolic encephalopathy secondary to infection. 3. Acute congestive heart failure with systolic dysfunction, ejection fraction 20%. 4. Chronic atrial fibrillation with rapid ventricular rate on admission, improved now not on anticoagulation due to a history of gastrointestinal bleed. 5. Hypernatremia due to free water deficit, improved. 6. History of hypertension. 7. History of varicose veins status post stripping. 8. Depression. 9. Macrocytic anemia. 10. Severe hypokalemia on admission. 11. Elevated BUN and metabolic alkalosis secondary to dehydration and metabolic alkalosis on admission. 12. Mild to moderate protein calorie malnutrition. 13. Deep venous thrombosis prophylaxis. DISCUSSION AND PLAN: 89 -year-old female admitted to the hospital with urinary tract infection and also found to have acute congestive heart failure. Continue with the beta blockers and ( ) continue antibiotics and follow-up closely. Will encourage p.o. intake. Further recommendations based on the clinical course.
[2016-04-09] MEDS: PRAVASTATIN SODIUM 20 MG TAB PO SCH (08:22)
[2016-04-09] MEDS: CHOLECALCIFEROL 1,000 UNIT TAB PO SCH (08:22)
[2016-04-09] MEDS: LOSARTAN 25 MG TAB PO SCH (08:22)
[2016-04-09] MEDS: ATENOLOL 50 MG TAB PO SCH ×2 (08:22→21:11)
[2016-04-09] MEDS: FUROSEMIDE 40 MG TAB PO SCH (08:22)
[2016-04-09] MEDS: POTASSIUM CHLORIDE ER 20 MEQ TAB.ER PO SCH ×2 (08:22→21:11)
[2016-04-09] MEDS: ISOSORBIDE MONONITRATE ER 30 MG TAB.ER.24H PO SCH (08:22)
[2016-04-09] MEDS: PANTOPRAZOLE 40 MG TABLET PO SCH (08:22)
[2016-04-09] MEDS: ESCITALOPRAM 10 MG TAB PO SCH (08:22)
--- NOTE | 2016-04-09 13:15 | PN ---
DATE OF SERVICE: 04/08/2016 Ms. Simmons is an 89-year-old woman admitted to the hospital with sepsis secondary to urinary tract infection and acute CHF with systolic dysfunction with ejection fraction of 30%. Currently patient is particularly improved now, tolerating p.o. diet. Lasix has been changed to 40 mg p.o. daily. Otherwise, the patient denied any abdominal pain. No fever. No chills. No acute overnight issues. Symptomatically much improved. REVIEW OF SYSTEMS: CONSTITUTIONAL: No fever. No chills. No weakness, malaise. RESPIRATORY: No cough or sputum production. CARDIOVASCULAR: No chest pain or shortness of breath. ABDOMEN: No nausea or vomiting. Patient did have bowel movement. No constipation. GENITOURINARY: Negative. ENDOCRINE: Negative. PSYCHIATRIC: Negative. SKIN: Negative. All other 14-point review of systems as noted above. CURRENT MEDICATIONS: Reviewed. PHYSICAL EXAMINATION: An 89-year-old female sitting in the chair comfortably; awake, alert, oriented x3. Appears to be in no apparent distress and slightly lethargic. VITALS: Blood pressure is 121/86, pulse is 94, respirations 16, temperature afebrile pulse ox 97% on room air. HEENT: Atraumatic, normocephalic. Neck is supple. No JVD. CVS: S1, S2 heard. No murmurs. No gallop. No rub. LUNGS: Bilateral air entry. No wheezing. No crackles. Abdomen is soft, nontender. Bowel sounds positive. REHABILITATION MANAGER: Awake, alert, oriented x3. No focal neurological deficits. Cranial nerves grossly intact. EXTREMITIES: No edema. Pulses are palpable bilaterally. No clubbing or cyanosis. PSYCHIATRIC: Cooperative. LABORATORY DATA: Sodium 137, potassium 4.0, chloride 98, bicarb is 28, BUN 17, creatinine 0.8. Calcium 8.6. IMPRESSION: 1. Sepsis secondary to urinary tract infection. Urine culture showed multiple organisms. Currently on antibiotics in the form of ceftriaxone. 2. Acute metabolic encephalopathy secondary to the infection, improved now. 3. Acute congestive heart failure with systolic dysfunction, ejection fraction 30%. 4. Chronic atrial fibrillation with rapid ventricular rate on admission, improved now. Not on anticoagulation due to gastrointestinal bleed. 5. Hypernatremia due to free water deficits, resolved now. 6. Hypertension. 7. History of varicose veins, status post stripping surgery. 8. Depression. 9. Microcytic anemia. 10. Severe hypokalemia on admission. 11. Metabolic alkalosis secondary to dehydration, volume depletion, improved now. 12. Mild to moderate protein-calorie malnutrition with albumin level of 2.5. DISCUSSION AND PLAN: An 89-year-old female admitted to the hospital with acute CHF and sepsis secondary to UTI. Continue with the antibiotics. Continue the current management, including beta blockers and losartan and Lasix p.o. and follow up closely. Encourage p.o. intake. Further recommendations based on the clinical course. MTDD
[2016-04-09 22:58] VITALS: RESP 15
[2016-04-10] MEDS ORDERED: ACETAMINOPHEN TAB 325 MG TAB PO PRN (00:55)
[2016-04-10 08:09] LABS: Basophils % (A) 0 %; CH 31.2; CHCM 32.1; Eosinophils # (A) 0.1 k/uL (0-0.7); Eosinophils % (A) 1 %; HCT 31.3 % (34.0-46.0); HDW 2.89; Hypochromasia Slight; Luc # (Auto) 0.15; Luc % (Auto) 3; Lymphocytes # (A) 0.5 k/uL (1.0-4.8); Lymphocytes % (A) 12 %; MCH 31.3 pg (25.0-35.0); MCV 97.7 fL (80.0-100.0); Mean Platelet Volume 6.8; Monocytes # (A) 0.3 k/uL (0-1.0); Monocytes % (A) 6 %; Neutrophils # (A) 3.5 k/uL (1.3-7.7); Neutrophils % (A) 78 %; WBC 4.5 k/uL (3.8-10.6); WBC (Perox) 4.65
[2016-04-10 08:27] VITALS: BP 123/78; PULSE 73; TEMP 96.7
[2016-04-10 08:35] LABS: Anion Gap 10 mmol/L; Blood Urea Nitrogen 16 mg/dL (7-17); Calcium 8.9 mg/dL (8.4-10.2); Carbon Dioxide 29 mmol/L (22-30); Chloride 97 mmol/L (98-107); Glucose 79 mg/dL (74-99); Non-African American GFR(MDRD) >60 (>60 ml/min/1.73 sqM); Potassium 4.2 mmol/L (3.5-5.1); Sodium 136 mmol/L (137-145)
[2016-04-10] MEDS: LOSARTAN 25 MG TAB PO SCH (09:01)
[2016-04-10] MEDS: ESCITALOPRAM 10 MG TAB PO SCH (09:02)
[2016-04-10] MEDS: ISOSORBIDE MONONITRATE ER 30 MG TAB.ER.24H PO SCH (09:02)
[2016-04-10] MEDS: CHOLECALCIFEROL 1,000 UNIT TAB PO SCH (09:02)
[2016-04-10] MEDS: POTASSIUM CHLORIDE ER 20 MEQ TAB.ER PO SCH (09:02)
[2016-04-10] MEDS: PRAVASTATIN SODIUM 20 MG TAB PO SCH (09:02)
[2016-04-10] MEDS: FUROSEMIDE 40 MG TAB PO SCH (09:02)
[2016-04-10] MEDS: PANTOPRAZOLE 40 MG TABLET PO SCH (09:02)
[2016-04-10] MEDS: ATENOLOL 50 MG TAB PO SCH (09:02)
--- NOTE | 2016-04-10 11:37 | PN ---
DATE OF SERVICE: 04/09/2016 INTERVAL HISTORY: Ms. Simmons is an 89-year-old female admitted to the hospital secondary to urinary tract infection, acute CHF with systolic dysfunction, ejection 30% and the patient is improved, tolerating p.o. diet and undergoing physical therapy. asphalt plant worker is following for transfer to extended care facility, likely tomorrow. REVIEW OF SYSTEMS: CONSTITUTIONAL: No fever, no chills. RESPIRATORY: No cough or sputum production. CARDIOVASCULAR: No chest pain or short of breath. No leg swelling. ABDOMEN: No nausea, vomiting or abdominal pain. GENITOURINARY: Negative. ENDOCRINE: Negative. PSYCHIATRY: Negative. SKIN: Negative. All other 14-point review of systems negative except as above. CURRENT MEDICATIONS: Reviewed. PHYSICAL EXAMINATION: An 89-year-old female lying in bed comfortably, awake, alert, oriented, x3, appears to be in no apparent distress. VITALS: Blood pressure is 95/60, pulse is 89, respirations is 15, temperature is afebrile, saturating 96% on room air. HEENT: Atraumatic, normocephalic. Neck is supple, no JVD. CVS: S1, S2, heard, no murmurs, no gallop. LUNGS: Bilateral air entry is present, bilateral crackles. Nonlabored breathing. No wheezing. Abdomen is soft, nontender. Bowel sounds present. BROACH OPERATOR EXAM: Awake, alert, oriented x3, no focal deficit. EXTREMITIES: No edema, pulses palpable bilaterally. PSYCHIATRIC: Cooperative. LABORATORY DATA: Reviewed. IMPRESSION: 1. Sepsis secondary to urinary track infection. Urine culture showed multiple organisms, currently on ceftriaxone. Will continue antibiotics for a total of 7 days. 2. Acute metabolic encephalopathy secondary infection, resolved now. 3. Acutely congestive heart failure systolic dysfunction, ejection fraction 30%. 4. Chronic atrial fibrillation with rapid ventricular appetite on admission, improved now, not on anticoagulation due to previous history of gastrointestinal bleed. 5. Hypernatremia due to free water deficit, resolved now. 6. Hypertension. 7. History of varicose veins and status post stripping surgery. 8. Depression. 9. Microcytic anemia. 10. Severe hypokalemia on admission. 11. Metabolic alkalosis secondary to dehydration, improved. 12. Mild to moderate protein calorie malnutrition with albumin level of 2.5. DISCUSSION AND PLAN: An 89-year-old female admitted to the hospital with short of breath and abdominal pain, will continue with the ceftriaxone and continue with the Lasix 40 mg p.o. daily along with atenolol and losartan. Patient is tolerating p.o. diet and anticipate discharge to extended care facility. Patient is stable for discharge. Social Work is following.
--- NOTE | 2016-04-10 14:56 | DS ---
DATE OF ADMISSION: 04/04/2016 DATE OF DISCHARGE: HOSPITAL COURSE: Ms. Simmons is an 89-year-old female, was admitted to the hospital secondary to urinary tract infection. The patient apparently has a long history of systolic heart failure with EF of 30% and there has been some difficulty in maintaining fluid balance. Patient apparently has been admitted to the hospital multiple times for a urinary tract infection. Patient was in good health about 8 months ago; however, has progressively gotten worse in regards to her mentation. Patient on the day of discharge was sitting up in a chair, was able to answer some questions appropriately. Patient does have a history of dementia and is dependent on most of her ADLs. Physical exam on the day of discharge, patient's lungs with good air entry. Clear to auscultation. HEART: S1, S2 heard, regular rate and rhythm. No murmurs appreciated. Abdomen is soft, nontender, no organomegaly. EXTREMITIES: No lower extremity edema noted. DISCHARGE DIAGNOSES: 1. Sepsis secondary to urinary tract infection. 2. Metabolic encephalopathy secondary to #1 in a patient with severe dementia. 3. Acute congestive heart failure, likely systolic in nature, which is improved on discharge. 4. Chronic atrial fibrillation with rapid ventricular rate on admission, which is improved. 5. Hypernatremia due to poor oral intake, which is improved. 6. Hypertension. 7. Depression. 8. Severe dementia. 9. Mild to moderate protein calorie malnutrition. Discharge medications were reviewed. New medications that added are: 1. Lasix 40 mg p.o. daily. 2. Imdur 30 mg p.o. daily. 3. Levaquin 250 mg p.o. daily x5 tablets. 4. Losartan 25 mg p.o. daily. 5. K-Dur 20 mEq p.o. b.i.d. 6. Pravastatin 20 mg p.o. daily. 7. Vitamin D3 one thousand units p.o. daily. 8. Tylenol 325 mg p.o. q.6 hours p.r.n. 9. Atenolol 50 mg p.o. b.i.d. 10. Lexapro 10 mg p.o. daily. 11. MiraLax 17 gm p.o. daily p.r.n. constipation. 12. Tylenol with Codeine was discontinued. The rest of the medications as in the discharge plan. The patient will be discharged to an ECF. Time spent is greater than 35 minutes.
== END 2016-04-10 16:35 | DRG 871 ==
LOC: EC 10:32 → 5MS5E 11:53
PROVIDERS: ADMIT Internal Medicine; ATTEND Internal Medicine
DX: A41.9 Sepsis, unspecified organism (principal); G93.41 Metabolic encephalopathy; I50.23 Acute on chronic systolic (congestive) heart failure; E87.0 Hyperosmolality and hypernatremia; I48.2 Chronic atrial fibrillation; E44.0 Moderate protein-calorie malnutrition; F03.90 Unspecified dementia, unspecified severity, without behavioral disturbance, psychotic disturbance, mood disturbance, and anxiety; E87.3 Alkalosis; I42.9 Cardiomyopathy, unspecified; E87.1 Hypo-osmolality and hyponatremia; N39.0 Urinary tract infection, site not specified; E87.6 Hypokalemia; D53.9 Nutritional anemia, unspecified; E86.0 Dehydration; I27.2 Other secondary pulmonary hypertension; D50.9 Iron deficiency anemia, unspecified; I11.0 Hypertensive heart disease with heart failure; I07.1 Rheumatic tricuspid insufficiency; E78.5 Hyperlipidemia, unspecified; K21.9 Gastro-esophageal reflux disease without esophagitis; R10.9 Unspecified abdominal pain; L98.9 Disorder of the skin and subcutaneous tissue, unspecified; G40.909 Epilepsy, unspecified, not intractable, without status epilepticus; F32.9 Major depressive disorder, single episode, unspecified; D75.89 Other specified diseases of blood and blood-forming organs; R53.1 Weakness; K59.00 Constipation, unspecified; M21.612 Bunion of left foot; M21.611 Bunion of right foot; Z90.49 Acquired absence of other specified parts of digestive tract; Z98.49 Cataract extraction status, unspecified eye; Z83.79 Family history of other diseases of the digestive system; Z82.49 Family history of ischemic heart disease and other diseases of the circulatory system; Z88.8 Allergy status to other drugs, medicaments and biological substances; Z87.19 Personal history of other diseases of the digestive system; Z87.440 Personal history of urinary (tract) infections; Z68.23 Body mass index [BMI] 23.0-23.9, adult; Z79.891 Long term (current) use of opiate analgesic; Z79.899 Other long term (current) drug therapy
CPT/HCPCS: 36415; 70450; 71010; 71020; 74000; 80048; 80053; 81001; 83605; 83880; 84132; 85025; 87040; 87086; 93005; 93306; 94760; 96361; 96365; 99285

== ENCOUNTER 2016-05-05 02:37 | Inpatient (IN) | payer MEDICARE, OTHER ==
[2016-05-05] MEDS ORDERED: SODIUM CHLORIDE 0.9% 1,000 ML IV STA (02:44)
[2016-05-05] MEDS ORDERED: SODIUM CHLORIDE 0.9% 500 ML IV STA (02:44)
--- NOTE | 2016-05-05 02:56 | ED ---
Recheck HPI - General Stated Complaint: abn labs Time Seen by Provider: 05/05/16 02:37 Source: EMS, RN notes reviewed Mode of arrival: EMS - History of Present Illness Initial Comments: This is a 89-year-old female with a history of severe dementia who was sent in for evaluation which was found to be hypotensive and hypernatremic. Apparently labs are drawn yesterday she was found have a sodium 164 chloride 124 BUN 83 creatinine 1.6 also given Ativan at about 20 1:30 PM last evening. Blood pressure was 88/46 she was afebrile. Patient is severely demented and a poor historian. There is no reports of fevers chills nausea vomiting sweats MD Complaint: other - Related Data Home Medications Medication Instructions Recorded Confirmed Pravastatin Sodium [Pravachol] 20 mg PO DAILY@0800 04/11/14 04/04/16 Cholecalciferol [Vitamin D3] 1,000 unit PO DAILY@0800 08/29/15 04/04/16 Acetaminophen Tab [Tylenol] 325 mg PO Q6H PRN 01/22/16 04/04/16 Atenolol 50 mg PO BID@0800,2000 01/22/16 04/04/16 Escitalopram [Lexapro] 10 mg PO DAILY@0800 01/22/16 04/04/16 Polyethylene Glycol 3350 [Miralax] 17 gm PO DAILY PRN 01/22/16 04/04/16 Docusate [Colace] 100 mg PO DAILY PRN 04/04/16 04/04/16 Previous Rx's Medication Instructions Recorded Furosemide [Lasix] 40 mg PO DAILY #30 tab 04/09/16 Isosorbide Mononitrate ER [Imdur] 30 mg PO DAILY #30 tab.er.24h 04/09/16 Losartan [Cozaar] 25 mg PO DAILY #30 tab 04/09/16 Potassium Chloride ER [K-Dur 20] 20 meq PO BID #30 tab.er.prt 04/09/16 Levofloxacin [Levaquin] 250 mg PO DAILY #5 tab 04/10/16 Allergies Allergy/AdvReac Type Severity Reaction Status Date / Time enalapril Allergy Unknown Verified 05/05/16 03:02 Review of Systems ROS Statement: Those systems with pertinent positive or pertinent negative responses have been documented in the HPI. ROS Other: All systems not noted in ROS Statement are negative. Limitations: ROS unobtainable due to patients medical condition Past Medical History Past Medical History: Atrial Fibrillation, Dementia, GERD/Reflux, GI Bleed, Hyperlipidemia, Hypertension, Memory Impairment, Skin Disorder Additional Past Medical History / Comment(s): Past wound right ankle-since healed (went to [facility]), bunions kolby feet, daughter states 2 areas of bleed in colon, diverticular disease, electrolyte problems (potassium), tricuspid/mitral regurgitation, UTIs. History of Any Multi-Drug Resistant Organisms: None Reported Past Surgical History: Appendectomy, Cholecystectomy Additional Past Surgical History / Comment(s): Bilateral cataracts removed, bilateral legs vein stripping, colonoscopy Past Anesthesia/Blood Transfusion Reactions: No Reported Reaction Past Psychological History: Anxiety Additional Psychological History / Comment(s): Pt resides at [facility]. She ambulates with a walker. Staff manage her medications and assist with ADLs. Smoking Status: Never smoker Past Alcohol Use History: None Reported Past Drug Use History: None Reported - Past Family History Father Family Medical History: Liver Disease Brother(s) Family Medical History: Myocardial Infarction ([place]) Mother Family Medical History: No Reported History Additional Family Medical History / Comment(s): from old age at age of 92 General Exam - General Exam Comments Initial Comments: Is a well-developed asthenic appearing female she is awake and alert but only oriented to self General appearance: alert, in no apparent distress Head exam: Present: atraumatic, normocephalic, normal inspection Eye exam: Present: normal appearance, PERRL, EOMI. Absent: scleral icterus, conjunctival injection, periorbital swelling ENT exam: Present: mucous membranes dry Neck exam: Present: normal inspection. Absent: tenderness, meningismus, lymphadenopathy Respiratory exam: Present: normal lung sounds bilaterally. Absent: respiratory distress, wheezes, rales, rhonchi, stridor Cardiovascular Exam: Present: regular rate, normal rhythm, normal heart sounds. Absent: systolic murmur, diastolic murmur, rubs, gallop, clicks GI/Abdominal exam: Present: soft, normal bowel sounds. Absent: distended, tenderness, guarding, rebound, rigid Extremities exam: Present: normal inspection, full ROM, normal capillary refill. Absent: tenderness, pedal edema, joint swelling, calf tenderness Back exam: Present: normal inspection Neurological exam: Present: alert, altered, CN II-XII intact Psychiatric exam: Present: other (Unable to fully evaluate) Skin exam: Present: warm, dry, intact, normal color. Absent: rash Course Vital Signs 05/05/16 05/05/16 05/05/16 02:53 02:58 03:45 Temperature 97.8 F 98.0 F 94.8 F L Pulse Rate 85 84 81 Respiratory 16 18 18 Rate Blood Pressure 88/60 88/54 91/56 O2 Sat by Pulse 99 96 98 Oximetry Medical Decision Making - Medical Decision Making I did discuss findings with the patient's family was present patient will be admitted she demonstrates dehydration and acute renal insufficiency as well as hypernatremia. - Lab Data Result diagrams: 05/05/16 02:55 05/05/16 02:55 Lab Results 05/05/16 05/05/16 05/05/16 Range/Units 02:48 02:55 02:55 WBC 6.3 (3.8-10.6) k/uL RBC 3.39 L (3.80-5.40) m/uL Hgb 10.5 L (11.4-16.0) gm/dL Hct 34.7 (34.0-46.0) % MCV 102.4 H (80.0-100.0) fL MCH 31.0 (25.0-35.0) pg MCHC 30.3 L (31.0-37.0) g/dL RDW 15.2 (11.5-15.5) % Plt Count 322 (150-450) k/uL Neutrophils % 78 % Lymphocytes % 12 % Monocytes % 5 % Eosinophils % 3 % Basophils % 0 % Neutrophils # 4.9 (1.3-7.7) k/uL Lymphocytes # 0.8 L (1.0-4.8) k/uL Monocytes # 0.3 (0-1.0) k/uL Eosinophils # 0.2 (0-0.7) k/uL Basophils # 0.0 (0-0.2) k/uL Hypochromasia Marked Macrocytosis Slight Sodium (137-145) mmol/L Potassium (3.5-5.1) mmol/L Chloride (98-107) mmol/L Carbon Dioxide (22-30) mmol/L Anion Gap mmol/L BUN (7-17) mg/dL Creatinine (0.52-1.04) mg/dL Est GFR (MDRD) Af Amer (>60 ml/min/1.73 sqM) Est GFR (MDRD) Non-Af (>60 ml/min/1.73 sqM) Glucose (74-99) mg/dL POC Glucose (mg/dL) 163 H (75-99) mg/dL POC Glu Clothing And Textiles Teacher ID Lazaro Richards Calcium (8.4-10.2) mg/dL Magnesium (1.6-2.3) mg/dL Total Bilirubin (0.2-1.3) mg/dL AST (14-36) U/L ALT (9-52) U/L Alkaline Phosphatase (38-126) U/L Total Creatine Kinase <20 L (30-135) U/L CK-MB (CK-2) 0.5 (0.0-2.4) ng/mL CK-MB (CK-2) Rel Index 0.0 Total Protein (6.3-8.2) g/dL Albumin (3.5-5.0) g/dL 05/05/16 Range/Units 02:55 WBC (3.8-10.6) k/uL RBC (3.80-5.40) m/uL Hgb (11.4-16.0) gm/dL Hct (34.0-46.0) % MCV (80.0-100.0) fL MCH (25.0-35.0) pg MCHC (31.0-37.0) g/dL RDW (11.5-15.5) % Plt Count (150-450) k/uL Neutrophils % % Lymphocytes % % Monocytes % % Eosinophils % % Basophils % % Neutrophils # (1.3-7.7) k/uL Lymphocytes # (1.0-4.8) k/uL Monocytes # (0-1.0) k/uL Eosinophils # (0-0.7) k/uL Basophils # (0-0.2) k/uL Hypochromasia Macrocytosis Sodium 163 H* (137-145) mmol/L Potassium 5.2 H (3.5-5.1) mmol/L Chloride 125 H* (98-107) mmol/L Carbon Dioxide 26 (22-30) mmol/L Anion Gap 12 mmol/L BUN 85 H* (7-17) mg/dL Creatinine 1.50 H (0.52-1.04) mg/dL Est GFR (MDRD) Af Amer 40 (>60 ml/min/1.73 sqM) Est GFR (MDRD) Non-Af 33 (>60 ml/min/1.73 sqM) Glucose 172 H (74-99) mg/dL POC Glucose (mg/dL) (75-99) mg/dL POC Glu Clothing And Textiles Teacher ID Calcium 9.4 (8.4-10.2) mg/dL Magnesium 3.0 H (1.6-2.3) mg/dL Total Bilirubin 0.6 (0.2-1.3) mg/dL AST 56 H (14-36) U/L ALT 57 H (9-52) U/L Alkaline Phosphatase 117 (38-126) U/L Total Creatine Kinase (30-135) U/L CK-MB (CK-2) (0.0-2.4) ng/mL CK-MB (CK-2) Rel Index Total Protein 6.3 (6.3-8.2) g/dL Albumin 3.0 L (3.5-5.0) g/dL - EKG Data -: EKG Interpreted by Me (Atrial fibrillation rate of 95 QRS duration 84 QT/QTC of 348/437 evidence a) - Radiology Data Radiology results: report reviewed (Review the x-ray shows evidence of cardiomegaly no other acute findings), image reviewed Disposition Clinical Impression: Dehydration, Acute renal insufficiency, Hypernatremia Disposition: ADMITTED IP TO THIS HOSP Condition: Stable
[2016-05-05 03:00] LABS: Glucose,Whole Blood 163 mg/dL (75-99)
[2016-05-05 03:05] LABS: Basophils % (A) 0 %; CH 30.4; CHCM 29.9; Eosinophils # (A) 0.2 k/uL (0-0.7); Eosinophils % (A) 3 %; HCT 34.7 % (34.0-46.0); HDW 2.54; HGB 10.5 gm/dL (11.4-16.0); Hypochromasia Marked; Luc # (Auto) 0.09; Luc % (Auto) 2; Lymphocytes # (A) 0.8 k/uL (1.0-4.8); Lymphocytes % (A) 12 %; MCHC 30.3 g/dL (31.0-37.0); MCV 102.4 fL (80.0-100.0); Macrocytosis Slight; Monocytes # (A) 0.3 k/uL (0-1.0); Monocytes % (A) 5 %; Neutrophils # (A) 4.9 k/uL (1.3-7.7); Neutrophils % (A) 78 %; RBC 3.39 m/uL (3.80-5.40); RDW 15.2 % (11.5-15.5); WBC 6.3 k/uL (3.8-10.6); WBC (Perox) 6.64
[2016-05-05 03:15] LABS: Calcium 9.4 mg/dL (8.4-10.2); Potassium 5.2 mmol/L (3.5-5.1); Total Bilirubin 0.6 mg/dL (0.2-1.3); Total Protein 6.3 g/dL (6.3-8.2)
--- NOTE | 2016-05-05 03:18 | XR ---
EXAMINATION TYPE: XR chest 2V DATE OF EXAM: 05/05/2016 3:13 AM COMPARISON: 04/05/2016 HISTORY: Dehydration and cough TECHNIQUE: Frontal and lateral views of the chest are obtained. FINDINGS: Heart is enlarged. There is no gross heart failure. There is moderate arthritic change at both shoulder joints. There is blunting of right costophrenic angle. IMPRESSION: Cardiomegaly. Small right pleural effusion. Congestive heart failure has essentially suha ared compared to old exam.
[2016-05-05 03:32] LABS: Creatine Kinase <20 U/L (30-135)
[2016-05-05 03:42] LABS: Creatine Kinase MB 0.5 ng/mL (0.0-2.4)
[2016-05-05] MEDS ORDERED: NALOXONE 0.4 MG/ML 1 ML VIAL IV PRN (04:52)
[2016-05-05] MEDS ORDERED: POLYETHYLENE GLYCOL 3350 17 GM POWD.PACK PO PRN (04:54)
[2016-05-05] MEDS ORDERED: DOCUSATE 100 MG CAP PO PRN (04:54)
[2016-05-05] MEDS ORDERED: CHOLECALCIFEROL 1,000 UNIT TAB PO SCH (08:00)
[2016-05-05] MEDS ORDERED: ATENOLOL 50 MG TAB PO SCH (08:00)
[2016-05-05] MEDS ORDERED: POTASSIUM CHLORIDE ER 20 MEQ TAB.ER PO SCH (09:00)
[2016-05-05] MEDS ORDERED: FUROSEMIDE 40 MG TAB PO SCH (09:00)
[2016-05-05] MEDS ORDERED: LOSARTAN 25 MG TAB PO SCH (09:00)
[2016-05-05] MEDS ORDERED: LEVOFLOXACIN 250 MG TAB PO SCH (09:00)
[2016-05-05] MEDS: SODIUM CHLORIDE 0.9% 1,000 ML IV SCH ×2 (09:30→17:29)
[2016-05-05] MEDS: ACETAMINOPHEN TAB 325 MG TAB PO PRN ×3 (10:27→23:27)
[2016-05-05] MEDS: ISOSORBIDE MONONITRATE ER 30 MG TAB.ER.24H PO SCH (10:28)
[2016-05-05] MEDS: ESCITALOPRAM 10 MG TAB PO SCH (10:28)
[2016-05-05] MEDS: PRAVASTATIN SODIUM 20 MG TAB PO SCH (10:29)
[2016-05-05 12:23] LABS: Appearance,Urine Clear (Clear); Bilirubin,Urine Negative (Negative); Glucose,Urine (UA) Negative (Negative); Ketones,Urine Negative (Negative); Leukocyte Esterase,Urine Trace (Negative); Mucus,Urine Rare /hpf; Nitrite,Urine Negative (Negative); Particle Count 2428; Protein,Urine Negative (Negative); RBC,Urine <1 /hpf (0-5); Specific Gravity,Urine 1.009 (1.001-1.035); Squamous Epithelial Cell,Urine <1 /hpf (0-4); UA Billing (MACRO vs. MICRO) MICRO; Urobilinogen,Urine <2.0 mg/dL (<2.0); WBC,Urine 1 /hpf (0-5)
[2016-05-05 12:32] LABS: Glucose,Whole Blood 74 mg/dL (75-99)
[2016-05-05] MEDS ORDERED: IPRATROPIUM-ALBUTEROL 3 ML NEB INHALATION PRN (13:49)
[2016-05-05] MEDS ORDERED: NON-FORMULARY DRUG (Lactose-Reduced Food [Ensure Plus] 120 ML) PO SCH (14:00)
[2016-05-05] MEDS: ENOXAPARIN 30 MG/0.3 ML SYRINGE SQ SCH (14:57)
[2016-05-05 17:52] LABS: Glucose,Whole Blood 130 mg/dL (75-99)
[2016-05-05] MEDS: LORazepam 1 MG TAB PO SCH (20:46)
[2016-05-05 21:21] LABS: Glucose,Whole Blood 192 mg/dL (75-99)
--- NOTE | 2016-05-05 22:12 | HP ---
DATE OF ADMISSION: 04/08/2016 PRESENTING COMPLAINT: Weak, tired and lethargic. HISTORY OF PRESENTING COMPLAINT: This is an 89-year-old patient who is a resident at [facility]. Patient's 2 daughters at the bedside to provide the history. The patient's chronic stable medical conditions include GERD, hyperlipidemia, tricuspid regurgitation, mitral regurgitation, diverticulosis, atrial fibrillation, some anxiety. The patient was recently in the hospital with sepsis from UTI and also CHF; ejection fraction is 30%. The patient now presents weak, tired and rundown, weak, tired and rundown found to be in severe renal failure. Per the daughter's patient has been hardly eating at the EKG hardly eating at ECF. Care was discussed with the ( ) came with sodium 163, BUN 85, creatinine 1.50. Patient ambulation has really gone down, the patient has become really weak and tired. Hence the patient being brought in. They did not wish to be aggressive. REVIEW OF SYSTEMS: Patient only answering some simple questions. CONSTITUTIONAL: Tired. HEENT: Decreased hearing. RESPIRATORY: None. CARDIOVASCULAR: None. GASTROINTESTINAL: None. GENITOURINARY: None. MUSCULOSKELETAL: Pain in the joints. Dermatological: None. HEMATOLOGICAL: None. LYMPHATICS: None. PSYCHIATRY: Forgetful. ( ). NEUROLOGICAL: Denies weakness. PAST MEDICAL HISTORY: Atrial fibrillation, dementia, GERD, GI bleed, hypertension, hyperlipidemia, bunions, diverticular disease, mitral and tricuspid regurgitation. PAST SURGICAL HISTORY: Appendectomy, cholecystectomy, bilateral cataract removal, bilateral leg vein stripping. SOCIAL HISTORY: The patient is a resident of [facility]. Patient needs assistance with ADLs. No smoking. No alcohol. Family history of liver disease. HOME MEDICATIONS: 1. Pravachol 20 mg p.o. daily. 2. Potassium 20 mEq p.o. b.i.d. 3. MiraLax 17 grams p.o. daily. 4. ( ) 130 mL rectal daily p.r.n. 5. Milk of magnesia 2400 p.o. daily. 6. Cozaar 25 mg p.o. daily. 7. Ensure Plus ( ) p.o. q.i.d. 8. Ativan 1 mg p.o. q.h.s. 9. Ativan 0.5 p.o. q.8 p.r.n. 10. DuoNeb q.6 p.r.n. 11. Lasix 40 mg p.o. daily. 12. Lexapro 10 mg p.o. daily. 13. Colace 1 mg p.o. daily. 14. Vitamin D3 1000 units p.o. daily. 15. Dulcolax 10 mg rectal daily p.r.n. 16. Atenolol 50 mg p.o. b.i.d. 17. Tylenol 325 p.o. q6h p.r.n. ALLERGIES: ( ). On examination, vital signs on presentation: temperature 94.8, pulse 81, respiration 18, blood pressure 91/56, pulse ox 98% on 2 liters. GENERAL APPEARANCE: Thin build, lying in bed, tired appearing. EYES: Pupils equal. Conjunctivae pale. HEENT: External appearance of nose and ears normal. Oral cavity with dry mucous membrane. NECK: JVD not raised. Mass not palpable. RESPIRATORY: Effort normal. LUNGS: Fair air entry. CARDIOVASCULAR: First and second sounds normal. No edema. ABDOMEN: Soft. Nontender. Liver and spleen not palpable. LYMPHATIC: No lymph nodes palpable in neck or axillae. PSYCHIATRY: Patient lethargic but able to answer simple questions. NEUROLOGICAL: Pupils equal. Cranial grossly intact. Power and sensation grossly intact. MUSCULOSKELETAL: Diffuse wasting of muscles. INVESTIGATIONS: White count 6.3, hemoglobin 10.5, sodium 153, potassium 5.2, BUN 85, creatinine 1.50, glucose 172, patient's 2-D echocardiogram done for recently shows moderate tricuspid regurgitation, severe pulmonary hypertension. Moderate mitral ( ) valve calcification, ejection fraction is 20% to 25%. ASSESSMENT: 1. Acute severe renal failure from poor oral intake could be a component of acute tubular necrosis from drug induced on top of that. 2. Severe hypernatremia from total free water deficit. 3. Chronic congestive heart failure from systolic dysfunction ejection fraction 20-25% from underlying hypertensive heart disease. 4. Persistent atrial fibrillation, rate controlled. 5. Essential hypertension, history of. 6. 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 7. Alzheimer's dementia, advanced, late onset, with no evidence of psychosis. 8. Moderate protein calorie malnutrition from poor oral intake. The patient has reduced muscle mass. 9. Chronic gastroesophageal reflux disease. 10. Colonic diverticulosis chronic. PLAN: Patient is given IV fluids. Patient antihypertensive and diuretics all will be held. Prognosis not good. Discussed with the family. Patient's CODE STATUS is DNR. ( ) closely. Advanced care planning was discussed with daughter at the bedside. After discussing overall poor prognosis they think hospice may be appropriate. They want to look into [facility] and also maybe going back to [facility]. Will talk to director of casework tomorrow. Comfort feeding will be done. We will give the fluids in the meantime. Advanced care planning was discussed additional 20 to 25 minutes in addition to the history and physical done above.
[2016-05-06] MEDS: SODIUM CHLORIDE 0.9% 1,000 ML IV SCH ×3 (01:00→22:17)
[2016-05-06 02:41] LABS: Glucose,Whole Blood 92 mg/dL (75-99)
[2016-05-06] MEDS: LORazepam 0.5 MG TAB PO PRN ×2 (03:41→16:46)
[2016-05-06 07:51] LABS: Glucose,Whole Blood 81 mg/dL (75-99)
[2016-05-06 08:36] LABS: Potassium 4.7 mmol/L (3.5-5.1)
[2016-05-06] MEDS: ACETAMINOPHEN TAB 325 MG TAB PO PRN (08:45)
[2016-05-06] MEDS: PRAVASTATIN SODIUM 20 MG TAB PO SCH (08:46)
[2016-05-06] MEDS: ESCITALOPRAM 10 MG TAB PO SCH (08:46)
[2016-05-06] MEDS: ISOSORBIDE MONONITRATE ER 30 MG TAB.ER.24H PO SCH (08:46)
[2016-05-06] MEDS: ENOXAPARIN 30 MG/0.3 ML SYRINGE SQ SCH (08:46)
[2016-05-06] MEDS ORDERED: MORPHINE SULFATE 2 MG/ML SYRINGE IVP PRN (09:46)
[2016-05-06 12:37] LABS: Glucose,Whole Blood 77 mg/dL (75-99)
[2016-05-06 17:15] LABS: Glucose,Whole Blood 93 mg/dL (75-99)
[2016-05-06 21:12] LABS: Glucose,Whole Blood 95 mg/dL (75-99)
[2016-05-06] MEDS: LORazepam 1 MG TAB PO SCH (22:16)
--- NOTE | 2016-05-06 22:32 | PN ---
DATE OF SERVICE: 05/06/2016 PRESENTING COMPLAINT: Weak, tired. INTERVAL HISTORY: This is a patient who presented with severe renal failure, severe hypernatremia, doing poorly. I spoke to the patient's family last night. They are looking into [facility] as a first preference; otherwise [place]. Patient is lying in bed, awake. Says a few words. Not really eating. Getting IV fluids. Review of systems attempted for constitutional, cardiovascular, GI, pulmonary; relevant findings as above. Current medications include IV fluids. On examination, temperature 97.4, pulse 86, respiration 20, blood pressure 95/65, pulse ox 98% on room air. GENERAL APPEARANCE: Lying in bed, awake but tired-appearing. EYES: Pupils equal. Conjunctivae pale. NECK: JVD not raised. Mass not palpable. RESPIRATORY: Effort normal. LUNGS: Diminished breath sounds. CARDIOVASCULAR: First and second sounds normal. No edema. ABDOMEN: Soft, nontender. Liver and spleen not palpable. PSYCHIATRY: Patient did answer some simple questions. INVESTIGATIONS: Sodium 162, potassium 4.7. BUN 60, creatinine 1.21. ASSESSMENT: 1. Acute severe renal failure from poor oral intake; could be a component of acute tubular necrosis in addition to drug-induced. 2. Severe hypernatremia from total free water deficit, slow to respond. 3. Chronic congestive heart failure from systolic dysfunction; ejection fraction 20% to 25% from underlying hypertensive heart disease. 4. Persistent atrial fibrillation, rate controlled. 5. Essential hypertension, history of. 6. 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 7. Advanced Alzheimer's dementia, late onset, advanced type. 8. Moderate to severe protein-calorie malnutrition from poor oral intake. Patient has diffuse muscle wasting. 9. Chronic gastroesophageal reflux disease. 10. Colonic diverticulosis, chronic. PLAN: When I came to the floor this morning, the patient's 2 daughters were being taken to talk to [facility]. I spoke to Alisha Calhoun, Auto Service Dispatcher, about VNA and that the patient's family already preferred to go to Hospice in [place]. I was informed, as per hospital policy, they had been informed to contact [facility] first. I did reiterate that the family had already chosen [facility] and [place] as the first preference and VNA, and that should be respected. It was not until about 2:30 that she left from [facility] and came here to talk to me. At this point I did update them about the patient's wishes. I will continue to hydrate the patient to see if she gets more comfortable. In the meantime, she will be looking into [facility] after talking to the daughters, who apparently have left by now. It was likely intention to respect family wishes. In the meantime, will check labs in the morning. Continue with hydration and give the patient comfort feeding. Total time spent today was over an hour to look into the matter. I also called Dr. Uribe, [employer] Inspector, to inform him of the same.
--- NOTE | 2016-05-06 22:34 | PN ---
DATE OF SERVICE: 05/06/2016 ADDENDUM TO PROGRESS NOTE ADDITION TO PLAN: She left from [facility] and did inform me that the daughters had already called the [facility] around 8:30 this morning inquiring about hospice placement there.
[2016-05-06 23:51] VITALS: RESP 16
[2016-05-07 02:07] LABS: Glucose,Whole Blood 133 mg/dL (75-99)
[2016-05-07 07:40] LABS: Glucose,Whole Blood 72 mg/dL (75-99)
[2016-05-07 07:48] VITALS: BP 120/53; PULSE 72; TEMP 97.3
[2016-05-07] MEDS: SODIUM CHLORIDE 0.9% 1,000 ML IV SCH ×2 (08:48→17:17)
[2016-05-07] MEDS: ESCITALOPRAM 10 MG TAB PO SCH (08:49)
[2016-05-07] MEDS: ISOSORBIDE MONONITRATE ER 30 MG TAB.ER.24H PO SCH (08:49)
[2016-05-07] MEDS: PRAVASTATIN SODIUM 20 MG TAB PO SCH (08:50)
[2016-05-07] MEDS: ENOXAPARIN 30 MG/0.3 ML SYRINGE SQ SCH (08:50)
[2016-05-07] MEDS ORDERED: DEXTROSE 50%-WATER 50 ML SYRINGE IVP STA (12:07)
[2016-05-07 12:12] LABS: Glucose,Whole Blood 56 mg/dL (75-99)
[2016-05-07 12:36] LABS: Glucose,Whole Blood 80 mg/dL (75-99)
--- NOTE | 2016-05-08 21:37 | DS ---
DATE OF ADMISSION: 05/05/2016 DATE OF DISCHARGE: 05/07/2016 FINAL DIAGNOSES: 1. Acute severe renal failure from poor oral intake; could be possibly from acute tubular necrosis, drug-induced and from decreased oral intake. 2. Severe hypernatremia from total free water deficit from decreased oral intake. 3. Chronic congestive heart failure from systolic dysfunction; ejection fraction 20% to 25%, with underlying hypertensive heart disease. 4. Persistent atrial fibrillation, rate controlled. 5. Essential hypertension, history of. 6. 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 7. Advanced Alzheimer's dementia, late onset. 8. Moderate to severe protein-calorie malnutrition from poor oral intake. Patient has diffuse muscle wasting. 9. Chronic gastroesophageal reflux disease. 10. Colonic diverticulosis, chronic. HOSPITAL COURSE: This patient came in doing very poorly. I talked to her daughters. They are agreeable to hospice as per the wishes. Patient will be taken down to [facility] in [place]. Please note that in my dictation from yesterday, where it is dictated "left [facility]" it should actually read "odell Morrison from [facility]." On examination, lungs have decreased breath sounds. Patient is following some simple commands. DISCHARGE MEDICATIONS: 1. Ativan 1 mg p.o. q.4 p.r.n. for anxiety. 2. Roxanol 5 mg p.o. q.4 p.r.n. 3. Scopolamine 1.5 mg q.72 hour patch. DISPOSITION: [facility] in [place]. FEEDING: Comfort feeding.
== END 2016-05-07 17:26 | disposition hospice, inpatient (51) | DRG 682 ==
LOC: EC 02:37 → 4MS4W 04:53
PROVIDERS: ADMIT Hospitalist; ATTEND Hospitalist
DX: N17.0 Acute kidney failure with tubular necrosis (principal); E43 Unspecified severe protein-calorie malnutrition; E87.0 Hyperosmolality and hypernatremia; I50.22 Chronic systolic (congestive) heart failure; I48.1 Persistent atrial fibrillation; I95.9 Hypotension, unspecified; I11.0 Hypertensive heart disease with heart failure; G30.9 Alzheimer's disease, unspecified; I08.1 Rheumatic disorders of both mitral and tricuspid valves; F02.80 Dementia in other diseases classified elsewhere, unspecified severity, without behavioral disturbance, psychotic disturbance, mood disturbance, and anxiety; E86.0 Dehydration; E78.5 Hyperlipidemia, unspecified; F32.9 Major depressive disorder, single episode, unspecified; K21.9 Gastro-esophageal reflux disease without esophagitis; K57.30 Diverticulosis of large intestine without perforation or abscess without bleeding; F41.9 Anxiety disorder, unspecified; M21.612 Bunion of left foot; M21.611 Bunion of right foot; T50.905A Adverse effect of unspecified drugs, medicaments and biological substances, initial encounter; Z68.1 Body mass index [BMI] 19.9 or less, adult; Z66 Do not resuscitate; Z79.899 Other long term (current) drug therapy; Z88.8 Allergy status to other drugs, medicaments and biological substances; Z82.49 Family history of ischemic heart disease and other diseases of the circulatory system; Y92.009 Unspecified place in unspecified non-institutional (private) residence as the place of occurrence of the external cause
CPT/HCPCS: 36415; 71020; 80048; 80053; 81001; 82550; 82553; 83735; 85025; 93005; 99285